=== PATIENT | male | born 1980 | race African-American/Black ===

== ENCOUNTER 2019-06-07 13:01 | Emergency (ER) | payer OTHER ==
[~2019-06-07] VITALS: Ht 182.9 cm; Wt 154.2 kg
[~2019-06-07 13:01] MED LIST: ALDACTONE25 MG PO; CARVEDILOL12.5 MG PO; COZAAR100 MG PO; LASIX 40 MG TAB40 M1 PO; NOHOMEMEDICATIONS
[2019-06-07] MEDS ORDERED: IMDUR 30 MG TAB30 M1 PO (13:26)
[2019-06-07] MEDS ORDERED: EPLERENONE50 MG PO (13:26)
[2019-06-07] MEDS ORDERED: ENTRESTO 97 MG1 EACH PO (13:26)
[2019-06-07] MEDS ORDERED: DAILY VITAMIN1 EAC6 PO (13:26)
[2019-06-07] MEDS ORDERED: HYDRALAZINE 2525 MG PO (13:26)
[2019-06-07 13:52] LABS: ABSOLUTE NEUTROPHILS 7.1 thou/uL (1.4-8.2); HEMATOCRIT 35.1 % (42.0-52.0); HEMOGLOBIN 11.7 gm/dL (14.0-18.0); MCH 28.6 pg (26.0-34.0)
[2019-06-07 13:53] LABS: BASOPHILS 0.3 % (0.0-2.0); EOSINOPHILS 0.7 % (0.0-3.0); LYMPHOCYTES 17.1 % (24.0-44.0); MCHC 33.2 g/dL (28.0-37.0); MCV 86.1 fL (80.0-100.0); MONOCYTES 8.6 % (1.0-8.0); PLATELET COUNT 293 thou/uL (150-400); POLYS 73.3 % (36.0-66.0); RBC 4.08 mil/uL (4.50-6.00); RDW 13.9 % (10.5-14.5); WBC 9.8 thou/uL (4.0-11.0)
[2019-06-07 14:08] LABS: ALBUMIN 3.3 g/dL (3.4-5.0); ANION GAP 13 mmol/L (7-16); BUN 12 mg/dL (7-18); CHLORIDE 104 mmol/L (98-107); CO2 25 mmol/L (21-32); CREATININE 1.3 mg/dL (0.7-1.3); GLUCOSE 105 mg/dL (74-106); POTASSIUM 3.6 mmol/L (3.5-5.1); SGOT 15 U/L (15-37); SGPT 20 U/L (30-65); SODIUM 142 mmol/L (136-145); TOTAL BILIRUBIN 0.7 mg/dL (<0.1-1.0); TOTAL PROTEIN 7.8 g/dL (6.4-8.2); TROPONIN-I <0.06 ng/mL (<0.06)
[2019-06-07 15:24] VITALS: BP 137/82
[2019-06-07] MEDS ORDERED: NAPROSYN500 MG PO (15:24)
--- NOTE | 2019-06-08 19:52 | EKG ---
[address] [address] ELECTROCARDIOGRAM REPORT Name: GUERDA DICKEY Room #: [id number] ������������������ Admission: 06/07/19 ������������������ Attend Phys: Discharge: 06/07/19 ������������������ Date of : 82 Report #: [id number] ����������������������������������������������������������������� [id number] THIS REPORT FOR: //name// [facility] ED Test Date: 2019-06-07 Test Time: 13:11:36 Pat Name: GUERDA DICKEY Department: Room: Gender: M [employer] Legal Assistant: RITA : 1980 Requested By: Hilton Kovacs Order Number: [id number] MD: Xavier Lucero Measurements Intervals [place] Rate: 104 P: 9 NV: 170 QRS: 62 QRSD: 101 T: 21 QT: 342 QTc: 450 Interpretive Statements Sinus tachycardia Compared to ECG 10/25/2013 04:48:53 No significant changes Electronically Signed On 06-08-2019 19:52:39 CDT by Xavier Lucero [email or web address] ��������������������������������������������� <ELECTRONICALLY SIGNED> ���������������������������������������� By: Xavier Lucero MD ��������������������������������������������� 06/08/191951 1311 10 Xavier Lucero MD /[email or web address]
== END 2019-06-07 15:57 | disposition home or self-care (01) ==
LOC: ER 13:01
PROVIDERS: Emergency Medicine
DX: R59.0 Localized enlarged lymph nodes (principal); R42 Dizziness and giddiness; I11.0 Hypertensive heart disease with heart failure; I50.9 Heart failure, unspecified; Z98.890 Other specified postprocedural states